=== PATIENT | female | born 1990 | race Caucasian/White ===

== ENCOUNTER 2016-07-15 02:44 | Emergency (ER) | payer MEDICAID, OTHER ==
[2016-07-15] MEDS ORDERED: KETOROLAC 60 MG/2 ML VIAL IM ONE (03:13)
[2016-07-15] MEDS ORDERED: CYCLOBENZAPRINE 10 MG TAB ONE (03:14)
== END 2016-07-15 03:51 | disposition home or self-care (01) ==
LOC: ER 02:44
DX: S39.012A Strain of muscle, fascia and tendon of lower back, initial encounter (principal); X50.0XXA Overexertion from strenuous movement or load, initial encounter
CPT/HCPCS: 72100; 81003; 81025; 96372